=== PATIENT | female | born 1965 | race Caucasian/White ===

== ENCOUNTER 2021-02-18 07:23 | Day surgery (SDC) | payer OTHER, SELFPAY ==
[~2021-02-18] VITALS: Ht 160 cm; Wt 71.7 kg
[~2021-02-18 07:23] MED LIST: CEFAZOLIN SOD 2 GM in D5W 50 ML IV ONE
[2021-02-18] MEDS ORDERED: INSULIN REGULAR, HUMAN 100 UNITS/ML, 10 ML VIAL (humuLIN R) ONE (08:14)
[2021-02-18] MEDS ORDERED: INSULIN REGULAR, HUMAN 100 UNITS/ML, 10 ML VIAL SUBCUT ONE (08:30)
[2021-02-18] MEDS ORDERED: HYDROmorphone 1 MG/ML INJ. CARTRIDGE IVP PRN (10:00)
[2021-02-18] MEDS ORDERED: KETOROLAC TROMETHAMINE 30 MG VIAL IVP PRN ×2 (10:00)
[2021-02-18] MEDS ORDERED: ONDANSETRON HCL 4 MG/2 ML VIAL IVP PRN (10:00)
[2021-02-18] MEDS ORDERED: LR 1,000 ML IV SCH (10:00)
[2021-02-18] MEDS ORDERED: HYDROmorphone 2 MG/ML VIAL IVP PRN (10:00)
[2021-02-18] MEDS ORDERED: fentaNYL CITRATE/PF 100 MCG/2 ML AMP ONE (10:46)
[2021-02-18] MEDS ORDERED: KETOROLAC TROMETHAMINE 30 MG VIAL ONE (10:46)
[2021-02-18] MEDS ORDERED: ONDANSETRON HCL 4 MG/2 ML VIAL ONE (10:46)
[2021-02-18] MEDS ORDERED: NEOSTIGMINE METHYLSULFATE 1 MG/ML, 10 ML VIAL ONE (10:46)
[2021-02-18] MEDS ORDERED: ROCURONIUM BROMIDE 10 MG/ML (ZEMURON) ONE (10:46)
[2021-02-18] MEDS ORDERED: NS 1000 ML IV.SOLN IV ONE (10:46)
[2021-02-18] MEDS ORDERED: LR 1,000 ML IV.SOLN IV ONE (10:46)
[2021-02-18] MEDS ORDERED: METOCLOPRAMIDE HCL 10 MG/2 ML VIAL ONE (10:46)
[2021-02-18] MEDS ORDERED: GLYCOPYRROLATE 0.2 MG/ML VIAL ONE (10:46)
[2021-02-18] MEDS ORDERED: PROPOFOL 200MG/ 20ML VIAL (DIPRIVAN) IV ONE (10:46)
[2021-02-18] MEDS ORDERED: MIDAZOLAM HCL 5 MG/ML VIAL (VERSED) IV ONE (10:46)
[2021-02-18] MEDS ORDERED: LIDOCAINE 1% 10 MG/ML, 20 ML MDV ONE (10:46)
[2021-02-18] MEDS ORDERED: SEVOFLURANE 15 MIN GAS INH ONE (10:46)
[2021-02-18 14:08] VITALS: BP_SYST 97
== END 2021-02-18 14:50 | disposition home or self-care (01) ==
LOC: SDS 07:23 → SMU 07:25 → SDS 14:50
PROVIDERS: ATTEND Surgery
DX: K80.10 Calculus of gallbladder with chronic cholecystitis without obstruction (principal); F90.9 Attention-deficit hyperactivity disorder, unspecified type; I10 Essential (primary) hypertension; K21.9 Gastro-esophageal reflux disease without esophagitis; Z79.84 Long term (current) use of oral hypoglycemic drugs; Z79.899 Other long term (current) drug therapy; Z20.822 Contact with and (suspected) exposure to COVID-19
CPT/HCPCS: 47562; 82948; 82962; 88304; C1727; J0690; J1815; J1885; J2001; J2250; J2405; J2704; J2710; J2765; J3010; J3490; J7030; J7060; J7120; U0003; Q9967